=== PATIENT | male | born 1985 | race Caucasian/White ===

== ENCOUNTER 2017-10-24 10:46 | Inpatient (IN) | payer MEDICAID, OTHER ==
[~2017-10-24] VITALS: Ht 170.2 cm; Wt 70.8 kg
[~2017-10-24 10:46] MED LIST: ARIP10TA8 PO
[2017-10-24 11:09] LABS: BASOPHILS # (AUTO) 0.03 K/uL (0.00-0.20); BASOPHILS % (AUTO) 0.5 % (0.0-2.0); EOSINOPHILS # (AUTO) 0.64 K/uL (0.00-0.70); HEMATOCRIT 41.7 % (41-53); HEMOGLOBIN 13.8 g/dL (13.5-17.5); LYMPHOCYTES # (AUTO) 1.3 K/uL (1.0-4.8); LYMPHOCYTES % (AUTO) 21.8 % (22.0-44.0); MEAN CORPUSCULAR HEMOGLOBIN 29.8 pg (26.0-34.0); MEAN CORPUSCULAR HGB CONC 33.2 G/dL (31.0-37.0); MEAN CORPUSCULAR VOLUME 90 fL (80-100); MONOCYTES # (AUTO) 0.4 K/uL (0.1-1.0); MONOCYTES % (AUTO) 7.1 % (2.0-9.0); NEUTROPHILS # (AUTO) 3.5 K/uL (1.8-7.7); NEUTROPHILS % (AUTO) 59.6 % (40.0-70.0); PLATELET COUNT (AUTO) 222 K/uL (150-450); RED BLOOD CELL COUNT(AUTO) 4.65 MIL/uL (4.50-5.90); RED CELL DISTRIBUTION WIDTH 13.4 % (11.5-14.5); WHITE BLOOD COUNT (AUTO) 5.9 K/uL (4.5-11.0)
[2017-10-24 11:52] LABS: ANION GAP 7 mmol/L (8-16); CALCIUM, TOTAL 8.5 mg/dL (8.8-10.5); CARBON DIOXIDE 27 mmol/L (22-29); CHLORIDE 107 mmol/L (98-107); CREATININE 0.75 mg/dL (0.60-1.30); GLOMERULAR FILTR. RATE CALC > 60 mL/min (>60); POTASSIUM 4.1 mmol/L (3.5-5.1); UREA NITROGEN, BLOOD 9 mg/dL (7-18)
[2017-10-24 11:53] LABS: SODIUM SERUM 141 mmol/L (136-145)
[2017-10-24 11:58] LABS: ALANINE AMINOTRANSFERASE 24 U/L (12-78); ALBUMIN 3.5 g/dL (3.4-5.0); ASPARTATE AMINOTRANSFERASE 13 U/L (15-37); BILIRUBIN,TOTAL 0.2 mg/dL (0.1-1.0)
[2017-10-24] MEDS ORDERED: ZOLPIDEM TARTRATE 10 MG TABLET PO PRN (16:00)
[2017-10-24 16:24] VITALS: BP 112/72
[2017-10-24] MEDS ORDERED: INFLUENZA VIRUS VACCINE QVS 2017-18 (3YR+)/PF 60 MCG/0.5 ML SYRINGE IM ONE (18:30)
[2017-10-25 06:30] VITALS: BP 103/65
[2017-10-25 08:22] VITALS: BP 118/60
[2017-10-25 08:29] LABS: CHOL/HDL RATIO 3.9 (4.2-7.3)
[2017-10-25] MEDS ORDERED: PETROLATUM,WHITE 71 GM JELLY TP PRN (09:45)
[2017-10-25] MEDS ORDERED: MAG HYDROX/AL HYDROX/SIMETH ES 30 ML SUSPENSION UDCUP PO PRN (09:45)
[2017-10-25] MEDS: HALOPERIDOL 5 MG TABLET PO PRN (09:45)
[2017-10-25] MEDS ORDERED: ONDANSETRON HCL 4 MG TABLET PO PRN (09:45)
[2017-10-25] MEDS ORDERED: BACITRACIN 28.4 GM OINTMENT TP PRN (09:45)
[2017-10-25] MEDS ORDERED: LOPERAMIDE HCL 2 MG CAPSULE PO PRN (09:45)
[2017-10-25] MEDS ORDERED: ACETAMINOPHEN 325 MG TABLET PO PRN (09:45)
[2017-10-25] MEDS ORDERED: CloNIDine HCL 0.1 MG TABLET PO PRN (09:45)
[2017-10-25] MEDS ORDERED: IBUPROFEN 600 MG TABLET PO PRN (09:45)
[2017-10-25] MEDS: LORazepam 2 MG TABLET PO PRN (09:45)
[2017-10-25] MEDS ORDERED: ALBUTEROL SULFATE HFA 90 MCG/PUFF 8 GM INHALER IH PRN (09:45)
[2017-10-25] MEDS ORDERED: MAGNESIUM HYDROXIDE SUSPENSION 30 ML UDCUP PO PRN (09:45)
[2017-10-25] MEDS ORDERED: BENZOCAINE/MENTHOL LOZENGE MM PRN (09:45)
[2017-10-25 16:11] VITALS: BP 116/65
[2017-10-26 06:29] VITALS: BP 111/68
[2017-10-26 08:30] VITALS: BP 106/75
[2017-10-26 09:01] LABS: APPEARANCE,URINE CLEAR (CLEAR); GLUCOSE, URINE (UA) NEGATIVE (NEGATIVE); KETONES,URINE NEGATIVE (NEGATIVE); LEUKOCYTE ESTERASE ,URINE NEGATIVE (NEGATIVE); OCCULT BLOOD,URINE NEGATIVE (NEGATIVE); PH,URINE 6.5 (5.0-8.0); PROTEIN,URINE NEGATIVE (NEGATIVE)
[2017-10-26 09:02] LABS: ADD UA MICROSCOPIC NO
[2017-10-26] MEDS: DIVALPROEX SODIUM 500 MG DR TABLET PO SCH ×2 (10:17→16:59)
[2017-10-26] MEDS: ARIPiprazole 15 MG TABLET PO SCH (10:17)
[2017-10-26 16:00] VITALS: BP 110/67
[2017-10-26] MEDS: HALOPERIDOL 5 MG TABLET PO PRN (16:59)
[2017-10-26] MEDS: LORazepam 2 MG TABLET PO PRN (16:59)
[2017-10-27 06:11] VITALS: BP 112/79
[2017-10-27 08:08] VITALS: BP 112/70
[2017-10-27] MEDS: DIVALPROEX SODIUM 500 MG DR TABLET PO SCH ×2 (09:53→16:54)
[2017-10-27] MEDS: ARIPiprazole 15 MG TABLET PO SCH (09:53)
[2017-10-27 16:12] VITALS: BP 114/64
[2017-10-28 06:50] VITALS: BP 117/72
[2017-10-28 08:10] VITALS: BP 115/65
[2017-10-28] MEDS: DIVALPROEX SODIUM 500 MG DR TABLET PO SCH ×2 (10:00→17:21)
[2017-10-28] MEDS: ARIPiprazole 15 MG TABLET PO SCH (10:00)
[2017-10-28 16:16] VITALS: BP 114/67
[2017-10-28] MEDS: HALOPERIDOL 5 MG TABLET PO PRN (17:21)
[2017-10-28] MEDS: LORazepam 2 MG TABLET PO PRN (17:21)
[2017-10-29 05:02] VITALS: BP 116/76
[2017-10-29] MEDS: ARIPiprazole 15 MG TABLET PO SCH (08:53)
[2017-10-29] MEDS: DIVALPROEX SODIUM 500 MG DR TABLET PO SCH ×2 (08:53→16:51)
[2017-10-29 09:41] VITALS: BP 127/74
[2017-10-29 16:00] VITALS: BP 116/75
[2017-10-29] MEDS: HALOPERIDOL 5 MG TABLET PO PRN (16:51)
[2017-10-29] MEDS: LORazepam 2 MG TABLET PO PRN (16:51)
[2017-10-30 06:38] VITALS: BP 114/69
[2017-10-30 08:28] VITALS: BP 109/70
[2017-10-30] MEDS: DIVALPROEX SODIUM 500 MG DR TABLET PO SCH ×2 (08:31→16:59)
[2017-10-30] MEDS: ARIPiprazole 15 MG TABLET PO SCH (08:31)
[2017-10-30] MEDS: LORazepam 2 MG TABLET PO PRN ×2 (08:31→16:59)
[2017-10-30 16:00] VITALS: BP 117/68
[2017-10-31 03:52] VITALS: BP 124/84
[2017-10-31 08:20] VITALS: BP 118/60
[2017-10-31] MEDS: ARIPiprazole 15 MG TABLET PO SCH (08:27)
[2017-10-31] MEDS: DIVALPROEX SODIUM 500 MG DR TABLET PO SCH ×2 (08:28→16:58)
[2017-10-31] MEDS: LORazepam 2 MG TABLET PO PRN ×2 (08:28→16:59)
[2017-10-31 16:00] VITALS: BP 112/71
[2017-10-31] MEDS: HALOPERIDOL 5 MG TABLET PO PRN (16:59)
[2017-11-01 02:01] VITALS: BP 119/76
[2017-11-01] MEDS: LORazepam 2 MG TABLET PO PRN ×2 (02:02→09:20)
[2017-11-01 08:39] VITALS: BP 122/70
[2017-11-01] MEDS: OMEGA-3/DHA/EPA/FISH OIL 1,000 MG CAPSULE PO SCH (09:20)
[2017-11-01] MEDS: ARIPiprazole 15 MG TABLET PO SCH (09:20)
[2017-11-01] MEDS: DIVALPROEX SODIUM 500 MG DR TABLET PO SCH ×2 (09:20→16:54)
[2017-11-01] MEDS: HALOPERIDOL 5 MG TABLET PO PRN ×2 (09:20→16:54)
[2017-11-01 16:23] VITALS: BP 105/62
[2017-11-02 05:16] VITALS: BP 114/70
[2017-11-02 08:00] VITALS: BP 133/73
[2017-11-02] MEDS: OMEGA-3/DHA/EPA/FISH OIL 1,000 MG CAPSULE PO SCH (09:15)
[2017-11-02] MEDS: DIVALPROEX SODIUM 500 MG DR TABLET PO SCH ×2 (09:15→16:42)
[2017-11-02] MEDS: ARIPiprazole 15 MG TABLET PO SCH (09:15)
[2017-11-02 16:00] VITALS: BP 113/66
[2017-11-02] MEDS: LORazepam 2 MG TABLET PO PRN (16:43)
[2017-11-03 01:30] VITALS: BP 115/72
[2017-11-03 08:15] VITALS: BP 129/66
[2017-11-03] MEDS: DIVALPROEX SODIUM 500 MG DR TABLET PO SCH (09:11)
[2017-11-03] MEDS: ARIPiprazole 15 MG TABLET PO SCH (09:11)
[2017-11-03] MEDS: OMEGA-3/DHA/EPA/FISH OIL 1,000 MG CAPSULE PO SCH (09:12)
[2017-11-03] MEDS ORDERED: DIVA500T35 PO (10:45)
== END 2017-11-03 13:30 | disposition home or self-care (01) | DRG 750 ==
LOC: EMS 10:46 → B3A 14:08
PROVIDERS: ADMIT Psychiatry & Neurology Psychiatry; ATTEND Psychiatry & Neurology Psychiatry
PROC: 3E0234Z Introduction of Serum, Toxoid and Vaccine into Muscle, Percutaneous Approach (ICD-10-PCS; principal; 2017-10-25)
DX: F20.0 Paranoid schizophrenia (principal); Z91.19 Patient's noncompliance with other medical treatment and regimen; F17.200 Nicotine dependence, unspecified, uncomplicated; G47.00 Insomnia, unspecified; K59.00 Constipation, unspecified; F12.90 Cannabis use, unspecified, uncomplicated; Z23 Encounter for immunization
CPT/HCPCS: 82306; 90471; 99285; G0480

== ENCOUNTER 2021-04-01 13:31 | Inpatient (IN) | payer MEDICAID ==
[~2021-04-01] VITALS: Ht 162.6 cm; Wt 67.8 kg
[~2021-04-01 13:31] MED LIST changes: +ARIP10TA38 PO; -ARIP10TA8 PO; +DIVA-112 PO
[2021-04-01 20:53] LABS: COVID AG,FIA SOURCE NASOPHARYNGEAL
[2021-04-01] MEDS ORDERED: HALOPERIDOL 5 MG TABLET PO PRN (21:00)
[2021-04-01 23:13] VITALS: BP 99/58
[2021-04-01] MEDS ORDERED: HALO5TAB2 PO (23:25)
[2021-04-01] MEDS ORDERED: BENZ1TAB10 PO (23:25)
[2021-04-01] MEDS ORDERED: QUET25TA PO (23:25)
[2021-04-01] MEDS ORDERED: HYD25 PO (23:25)
[2021-04-01] MEDS ORDERED: AMOX1TAB16 PO (23:25)
[2021-04-02] MEDS: LORazepam 2 MG TABLET PO PRN ×3 (00:18→16:35)
[2021-04-02] MEDS: ZOLPIDEM TARTRATE 10 MG TABLET PO PRN ×2 (00:18→20:51)
[2021-04-02 00:54] VITALS: BP 136/76
[2021-04-02] MEDS ORDERED: LOPERAMIDE HCL 2 MG CAPSULE PO PRN (07:15)
[2021-04-02] MEDS ORDERED: CloNIDine HCL 0.1 MG TABLET PO PRN (07:15)
[2021-04-02] MEDS ORDERED: IBUPROFEN 400 MG TABLET PO PRN (07:15)
[2021-04-02] MEDS ORDERED: ONDANSETRON HCL 4 MG TABLET PO PRN (07:15)
[2021-04-02] MEDS ORDERED: ACETAMINOPHEN 325 MG TABLET PO PRN (07:15)
[2021-04-02] MEDS ORDERED: MAGNESIUM HYDROXIDE SUSPENSION 30 ML UDCUP PO PRN (07:15)
[2021-04-02] MEDS ORDERED: PETROLATUM,WHITE 28 GM JELLY TP PRN (07:15)
[2021-04-02] MEDS ORDERED: GuaiFENesin/D-METHORPHAN [SUGAR-FREE] 200-20MG/10 ML SYRUP UDCUP PO PRN (07:15)
[2021-04-02] MEDS ORDERED: DOCUSATE SODIUM 100 MG CAPSULE PO PRN (07:15)
[2021-04-02] MEDS ORDERED: MAG HYDROX/AL HYDROX/SIMETH ES 30 ML SUSPENSION UDCUP PO PRN (07:15)
[2021-04-02] MEDS ORDERED: ALBUTEROL SULFATE HFA 90 MCG/PUFF 8 GM INHALER IH PRN (07:15)
[2021-04-02 08:44] VITALS: BP 100/61
[2021-04-02] MEDS: ARIPiprazole 15 MG TABLET PO SCH (12:44)
[2021-04-02 16:24] VITALS: BP 106/67
[2021-04-02] MEDS: BENZTROPINE MESYLATE 1 MG TABLET PO SCH (16:35)
[2021-04-02] MEDS: DIVALPROEX SODIUM 500 MG DR TABLET PO SCH (16:35)
[2021-04-02] MEDS: QUEtiapine FUMARATE 25 MG TABLET PO SCH (20:51)
[2021-04-03 05:16] VITALS: BP 118/68
[2021-04-03 07:01] LABS: BASOPHILS % (AUTO) 0.6 % (0.0-2.0); EOSINOPHILS % (AUTO) 7.2 % (1.0-6.0); HEMATOCRIT 42.5 % (41-53); HEMOGLOBIN 14.2 g/dL (13.5-17.5); LYMPHOCYTES # (AUTO) 1.7 K/uL (1.0-4.8); LYMPHOCYTES % (AUTO) 44.3 % (22.0-44.0); MEAN CORPUSCULAR HEMOGLOBIN 29.8 pg (26.0-34.0); MEAN CORPUSCULAR HGB CONC 33.3 G/dL (31.0-37.0); MEAN CORPUSCULAR VOLUME 89 fL (80-100); MONOCYTES # (AUTO) 0.3 K/uL (0.1-1.0); MONOCYTES % (AUTO) 8.8 % (2.0-9.0); NEUTROPHILS # (AUTO) 1.5 K/uL (1.8-7.7); NEUTROPHILS % (AUTO) 39.1 % (40.0-70.0); PLATELET COUNT (AUTO) 282 K/uL (150-450); RED BLOOD CELL COUNT(AUTO) 4.76 MIL/uL (4.50-5.90); RED CELL DISTRIBUTION WIDTH 13.8 % (11.5-14.5)
[2021-04-03 07:27] LABS: ALANINE AMINOTRANSFERASE 20 U/L (12-78); ALBUMIN 3.4 g/dL (3.4-5.0); ALKALINE PHOSPHATASE 90 U/L (46-116); ANION GAP 6 mmol/L (8-16); ASPARTATE AMINOTRANSFERASE 13 U/L (15-37); BILIRUBIN,TOTAL 0.2 mg/dL (0.1-1.0); CALCIUM, TOTAL 8.6 mg/dL (8.8-10.5); CARBON DIOXIDE 26 mmol/L (22-29); CHLORIDE 105 mmol/L (98-107); CHOL/HDL RATIO 3.1 (4.2-7.3); CHOLESTEROL 139 mg/dL (131-200); CREATININE 0.65 mg/dL (0.60-1.30); GLOMERULAR FILTR. RATE CALC > 60 mL/min (>60); GLUCOSE,RANDOM 90 mg/dL (70-110); HDL CHOLESTEROL 45 mg/dL (40-60); LDL CHOL (CALC.) 69 mg/dL (0-130); SODIUM SERUM 137 mmol/L (136-145); THYROID STIMULATING HORMONE 0.45 uIU/mL (0.36-3.74); TOTAL PROTEIN, SERUM 6.9 g/dL (6.4-8.2); TRIGLYCERIDES 127 mg/dL (15-150); UREA NITROGEN, BLOOD 10 mg/dL (7-18); VALPROIC ACID 32 mcg/mL (50-100)
[2021-04-03 08:17] VITALS: BP 110/76
[2021-04-03] MEDS: DIVALPROEX SODIUM 500 MG DR TABLET PO SCH ×2 (08:44→16:50)
[2021-04-03] MEDS: BENZTROPINE MESYLATE 1 MG TABLET PO SCH ×2 (08:44→16:50)
[2021-04-03] MEDS: ARIPiprazole 15 MG TABLET PO SCH (08:48)
[2021-04-03 16:25] VITALS: BP 113/66
[2021-04-03] MEDS: QUEtiapine FUMARATE 25 MG TABLET PO SCH (21:05)
[2021-04-04 02:19] VITALS: BP 120/65
[2021-04-04 08:30] VITALS: BP 110/71
[2021-04-04] MEDS: BENZTROPINE MESYLATE 1 MG TABLET PO SCH ×2 (08:48→16:26)
[2021-04-04] MEDS: ARIPiprazole 15 MG TABLET PO SCH (08:48)
[2021-04-04] MEDS: DIVALPROEX SODIUM 500 MG DR TABLET PO SCH ×2 (08:48→16:26)
[2021-04-04] MEDS: LORazepam 2 MG TABLET PO PRN (08:48)
[2021-04-04 16:17] VITALS: BP 104/67
[2021-04-04] MEDS: QUEtiapine FUMARATE 25 MG TABLET PO SCH (20:50)
[2021-04-05 00:19] VITALS: BP 108/64
[2021-04-05 08:15] VITALS: BP 116/77
[2021-04-05] MEDS: ARIPiprazole 15 MG TABLET PO SCH (08:46)
[2021-04-05] MEDS: BENZTROPINE MESYLATE 1 MG TABLET PO SCH ×2 (08:46→16:09)
[2021-04-05] MEDS: DIVALPROEX SODIUM 500 MG DR TABLET PO SCH ×2 (08:46→16:09)
[2021-04-05] MEDS: LORazepam 2 MG TABLET PO PRN (08:49)
[2021-04-05 16:08] VITALS: BP 110/75
[2021-04-05] MEDS: NICOTINE 14 MG/24 HOUR PATCH TD PRN (16:18)
[2021-04-05] MEDS: ZOLPIDEM TARTRATE 10 MG TABLET PO PRN (20:37)
[2021-04-05] MEDS: QUEtiapine FUMARATE 25 MG TABLET PO SCH (20:37)
[2021-04-06 02:32] VITALS: BP 103/70
[2021-04-06 07:50] LABS: APPEARANCE,URINE CLEAR (CLEAR); BILIRUBIN,URINE NEGATIVE (NEGATIVE); GLUCOSE, URINE (UA) NEGATIVE (NEGATIVE); KETONES,URINE NEGATIVE (NEGATIVE); LEUKOCYTE ESTERASE ,URINE NEGATIVE (NEGATIVE); NITRATE,URINE NEGATIVE (NEGATIVE); OCCULT BLOOD,URINE NEGATIVE (NEGATIVE); PROTEIN,URINE NEGATIVE (NEGATIVE); UROBILINOGEN,URINE 0.2 mg/dL (<=1.0)
[2021-04-06 08:01] LABS: AMPHET/METH SCREEN,URINE NEGATIVE (NEGATIVE); BARBITURATE SCREEN, URINE NEGATIVE (NEGATIVE); BENZODIAZEPINES SCREEN,URINE NEGATIVE (NEGATIVE); CANNABINOID SCREEN,URINE NEGATIVE (NEGATIVE); COCAINE SCREEN,URINE NEGATIVE (NEGATIVE); METHADONE SCREEN, URINE NEGATIVE (NEGATIVE); OPIATE SCREEN,URINE NEGATIVE (NEGATIVE)
[2021-04-06 08:03] LABS: PHENCYCLIDINE SCREEN,URINE NEGATIVE (NEGATIVE)
[2021-04-06] MEDS: BENZTROPINE MESYLATE 1 MG TABLET PO SCH ×2 (08:35→16:36)
[2021-04-06] MEDS: LORazepam 2 MG TABLET PO PRN ×2 (08:35→16:41)
[2021-04-06] MEDS: ARIPiprazole 15 MG TABLET PO SCH (08:35)
[2021-04-06] MEDS: DIVALPROEX SODIUM 500 MG DR TABLET PO SCH ×2 (08:35→16:36)
[2021-04-06 08:43] VITALS: BP 100/61
[2021-04-06 16:48] VITALS: BP 110/67
[2021-04-06] MEDS: QUEtiapine FUMARATE 25 MG TABLET PO SCH (20:40)
[2021-04-07 00:22] VITALS: BP 94/55
[2021-04-07] MEDS: ARIPiprazole 15 MG TABLET PO SCH (08:49)
[2021-04-07] MEDS: DIVALPROEX SODIUM 500 MG DR TABLET PO SCH ×2 (08:49→16:23)
[2021-04-07] MEDS: LORazepam 2 MG TABLET PO PRN ×2 (08:49→20:45)
[2021-04-07] MEDS: BENZTROPINE MESYLATE 1 MG TABLET PO SCH ×2 (08:49→16:24)
[2021-04-07 09:04] VITALS: BP 108/70
[2021-04-07] MEDS: NICOTINE 14 MG/24 HOUR PATCH TD PRN (10:26)
[2021-04-07 16:32] VITALS: BP 127/75
[2021-04-07] MEDS: QUEtiapine FUMARATE 25 MG TABLET PO SCH (20:45)
[2021-04-07] MEDS: ZOLPIDEM TARTRATE 10 MG TABLET PO PRN (22:37)
[2021-04-08 07:08] VITALS: BP 126/93
[2021-04-08 08:34] VITALS: BP 106/75
[2021-04-08] MEDS: DIVALPROEX SODIUM 500 MG DR TABLET PO SCH ×2 (08:43→16:33)
[2021-04-08] MEDS: LORazepam 2 MG TABLET PO PRN ×2 (08:43→16:33)
[2021-04-08] MEDS: BENZTROPINE MESYLATE 1 MG TABLET PO SCH ×2 (08:43→16:33)
[2021-04-08] MEDS: ARIPiprazole 15 MG TABLET PO SCH (08:43)
[2021-04-08 16:16] VITALS: BP 107/71
[2021-04-08] MEDS: QUEtiapine FUMARATE 25 MG TABLET PO SCH (21:00)
[2021-04-09 06:19] VITALS: BP 108/63
[2021-04-09 08:28] VITALS: BP 108/76
[2021-04-09] MEDS: ARIPiprazole 15 MG TABLET PO SCH (09:20)
[2021-04-09] MEDS: DIVALPROEX SODIUM 500 MG DR TABLET PO SCH ×2 (09:21→16:29)
[2021-04-09] MEDS: BENZTROPINE MESYLATE 1 MG TABLET PO SCH ×2 (09:21→16:29)
[2021-04-09 16:22] VITALS: BP 129/83
[2021-04-09] MEDS: LORazepam 2 MG TABLET PO PRN (16:29)
[2021-04-09] MEDS: NICOTINE 14 MG/24 HOUR PATCH TD PRN (19:29)
[2021-04-09] MEDS: QUEtiapine FUMARATE 25 MG TABLET PO SCH (21:02)
[2021-04-10 05:49] VITALS: BP 98/64
[2021-04-10] MEDS: ARIPiprazole 15 MG TABLET PO SCH (08:22)
[2021-04-10 08:23] VITALS: BP 105/70
[2021-04-10] MEDS: BENZTROPINE MESYLATE 1 MG TABLET PO SCH ×2 (08:23→16:46)
[2021-04-10] MEDS: LORazepam 2 MG TABLET PO PRN (08:23)
[2021-04-10] MEDS: NICOTINE 14 MG/24 HOUR PATCH TD PRN (08:23)
[2021-04-10] MEDS: DIVALPROEX SODIUM 500 MG DR TABLET PO SCH ×2 (08:23→16:46)
[2021-04-10 16:05] VITALS: BP 113/71
[2021-04-10] MEDS: QUEtiapine FUMARATE 25 MG TABLET PO SCH (20:10)
[2021-04-11 04:33] VITALS: BP 108/74
[2021-04-11 08:08] VITALS: BP 110/74
[2021-04-11] MEDS: DIVALPROEX SODIUM 500 MG DR TABLET PO SCH ×2 (08:16→17:14)
[2021-04-11] MEDS: BENZTROPINE MESYLATE 1 MG TABLET PO SCH ×2 (08:16→17:14)
[2021-04-11] MEDS: ARIPiprazole 15 MG TABLET PO SCH (08:16)
[2021-04-11 16:08] VITALS: BP 117/69
[2021-04-11] MEDS ORDERED: QUET25TA PO (16:22)
[2021-04-11] MEDS ORDERED: ARIP15TA27 PO (16:22)
[2021-04-11] MEDS ORDERED: DIVA-112 PO (16:24)
== END 2021-04-11 17:15 | disposition home or self-care (01) | DRG 750 ==
LOC: B3A 21:06
PROVIDERS: ADMIT Psychiatry & Neurology Psychiatry; ATTEND Psychiatry & Neurology Psychiatry
DX: F20.0 Paranoid schizophrenia (principal); I95.9 Hypotension, unspecified; R45.851 Suicidal ideations; D72.819 Decreased white blood cell count, unspecified; F12.90 Cannabis use, unspecified, uncomplicated; Z79.899 Other long term (current) drug therapy; Z20.822 Contact with and (suspected) exposure to COVID-19; F19.10 Other psychoactive substance abuse, uncomplicated
CPT/HCPCS: 80053; 80061; 80164; 80307; 81003; 84439; 84443; 85025; 87426